=== PATIENT | female | born 1985 | race Caucasian/White ===

== ENCOUNTER → 2016-09-19 | Outpatient (CLI) | payer BC ==
[~2016-09-19] VITALS: Ht 154.9 cm; Wt 90.7 kg
[~2016-09-19] MED LIST: BUDE10.2 IH; CETI10CA PO; CICL6.1H5 NS; CONTRAST GIVEN MC PRN; FLUO40CA9 PO; IOHEXOL 300 MG/ML 50 ML VIAL. INT UTERIN ONE; PROAIR HFA8.5 GM INH
[2016-09-19 10:27] VITALS: BP 124/67
--- NOTE | 2016-09-19 12:06 | RAD ---
EXAM: Hysterosalpingography. HISTORY: Essure placement. Confirm fallopian tube closure. COMPARISON: None. FINDINGS: The procedure along with its risks and benefits were expanded the patient. She agreed to proceed. A timeout procedure was performed. A vaginal speculum was placed. The cervix was sterilely prepped with Betadine. A balloon catheter was advanced into the endometrial canal and the balloon inflated under fluoroscopic control. Isovue-300 was injected and fluoroscopic images were obtained. There are bilateral Essure devices in expected position. No contrast spills from either tube. There was difficulty achieving a seal with a balloon catheter, with most of the contrast spilling through the cervix, which lower sensitivity. Nevertheless, both tubes appear closed. No endometrial lesion is identified. Small air bubbles are artifactual. Instrumentation was drawn. There are no immediate combinations. 5 fluoroscopic images were obtained. Fluoroscopy time 1.3 minutes. IMPRESSION: 1. Both fallopian tubes appear closed.
== END | disposition home or self-care (01) ==
LOC: US 09:19
PROVIDERS: ATTEND Obstetrics & Gynecology
DX: Z30.2 Encounter for sterilization (principal); J45.909 Unspecified asthma, uncomplicated
CPT/HCPCS: 58340; 74740; Q9967